=== PATIENT | female | born 1935 | race Caucasian/White ===

== ENCOUNTER → 2017-04-24 | Outpatient (CLI) | payer MEDICARE, OTHER ==
[~2017-04-24] MED LIST: IOPAMIDOL 76% 75 ML INFUS BTL 75 ML ONE; NS 0.9% 20 ML SDV 40 ML ONE
--- NOTE | 2017-04-24 16:43 | RADIOLOGY IMAGING REPORT ---
FACILITY: [facility] - [place] PATIENT NAME: Loulou Garcia : 1935 MR: [id number] V: [id number] EXAM DATE: ORDERING PHYSICIAN: MICHELLE LAND TECHNOLOGIST: Location: [facility] [place] Patient: Loulou Garcia : 1935 Visit/Account:[id number] Date of Sevice: 04/24/2017 CHEST W CONTRAST History: Dry cough, mediastinal mass TECHNIQUE: Contiguous axial images were performed through the chest to the level of the adrenal gla nds following the administration of IV contrast. Coronal and sagittal reformatting was also perform ed. Dose Lowering Technique One of the following dose optimization techniques was utilized in the performance of this exam: Autom ated exposure control; adjustment of the mA and/or kV according to the patient's size; or use of an i terative reconstruction technique. Specific details can be referenced in the facility's radiology C T exam operational policy. Contrast: 75 mL Isovue-370 COMPARISON STUDIES: Chest PA and lateral March 07, 2017. Lungs / Pleura: Coarse linear stranding is identified in the anterior right upper lobe inferior naren gula and both lower lobes likely represent scarring. Patchy airspace consolidation with air bronchog aurora in the left lower lobe may represent chronic atelectasis versus infiltrate. There is no evidenc e of pleural effusions. Mediastinum/nodes: negative. Heart and vessels: negative. Musculoskeletal / Body wall: There are moderate spondylotic changes of the thoracolumbar spine. Upper abdomen: There is a large laminated gallstone within the gallbladder. No evidence of biliary ductal dilatation. Incompletely imaged 1.5 cm hypodensity upper pole the left kidney likely a cyst. There is a large diaphragmatic hernia on the left containing most of the stomach IMPRESSION: There is a large diaphragmatic hernia on the left containing most of the stomach Cholelithiasis although no demonstration of biliary ductal dilatation Coarse linear stranding in the lungs likely representing scarring. Patchy airspace consolidation with air bronchograms in the left lower lobe may represent atelectasis versus infiltrate. Report Dictated By: Carey Pineda MD at 04/24/2017 4:32 PM Report E-Signed By: Carey Pineda MD at 04/24/2017 4:40 PM WSN:[email or web address]
== END ==
LOC: CT 01:38
PROVIDERS: ATTEND Nurse Practitioner Family
DX: K44.9 Diaphragmatic hernia without obstruction or gangrene (principal); R91.8 Other nonspecific abnormal finding of lung field; K80.80 Other cholelithiasis without obstruction
CPT/HCPCS: 71260; J7050; Q9967

== ENCOUNTER → 2017-05-05 | Outpatient (CLI) | payer MEDICARE, OTHER | LOC: RESP 04:05 | PROVIDERS: ATTEND Nurse Practitioner Family | DX: J44.9 Chronic obstructive pulmonary disease, unspecified (principal); K44.9 Diaphragmatic hernia without obstruction or gangrene | CPT/HCPCS: 94060; 94726; 94729 ==

== ENCOUNTER → 2018-05-03 | Outpatient (CLI) | payer MEDICARE, OTHER ==
[~2018-05-03] MED LIST changes: -IOPAMIDOL 76% 75 ML INFUS BTL 75 ML ONE; -NS 0.9% 20 ML SDV 40 ML ONE; +REGADENOSON 0.4 MG/5 ML SYR ONE
--- NOTE | 2018-05-03 17:12 | RT STRESS TEST REPORT ---
FACILITY: [facility] - [place] PATIENT NAME: DOUG MICHELLE : [id number] MR: [id number] V: [id number] EXAM DATE: ORDERING PHYSICIAN: MICHELLE LAND TECHNOLOGIST: Acquisition Time: 2018-05-03 14:53:17 Total Exercise Time: 00:01:00 Test Indications: Fatigue Medications: see nuclear med sheet Protocol: LEXISCAN Max HR: 075 BPM 53% of Pred: 140 BPM Max BP: 136/067 mmHG Max Work Load: 1.0 METS Non-diagnostic EKG portion of stress test. Await radiology evaluation of imaging portion. Confirmed by Sami Clements ([id number]) on 05/03/2018 5:12:48 PM Referred By: Overread By: Sami Beltran
--- NOTE | 2018-05-04 09:11 | RADIOLOGY IMAGING REPORT ---
FACILITY: [facility] - [place] PATIENT NAME: Loulou Garcia : 1935 MR: [id number] V: [id number] EXAM DATE: ORDERING PHYSICIAN: MICHELLE LAND TECHNOLOGIST: Location: [facility] - [place] Patient: Loulou Garcia : 1935 Visit/Account:[id number] Date of Sevice: 05/03/2018 EXAMINATION: Single isotope SPECT imaging with regadenoson infusion and gated SPECT imaging. DATE OF EXAMINATION: 05/03/2018. DATE OF INTERPRETATION: 05/04/2018. REQUESTING PHYSICIAN: MICHELLE LAND. INDICATION: The patient is a 82-year-old female evaluated for fatigue. PROCEDURE: After informed consent the patient received an intravenous injection of 12.6 mCi of Tc-99 m sestamibi followed at an appropriate time interval by rest imaging. The patient then subsequently received an intravenous infusion of 0.4 mg of regadenoson per protocol without complication. Resting heart rate was 54 bpm with a peak heart rate of 75 bpm. Blood pressure at rest was 136 / 67 and fol lowing infusion was 136 / 67. Baseline EKG demonstrates sinus rhythm. There were no EKG changes of ischemia following infusion. Symptoms were nonspecific. The patient then received an intravenous in jection of 28.7 mCi of Tc-99m sestamibi followed by stress imaging. RAW DATA: Examination of the summed raw data revealed a good quality study. MYOCARDIAL PERFUSION: The tomographic images demonstrate normal myocardial perfusion with no evidenc e of infarct or ischemia. There is a mild inconsistent anterior defect that is most likely from breas t attenuation. There is no TID. GATED IMAGES: The gated images demonstrate hyperdynamic ejection fraction >70% with normal wall bing on and thickening. IMPRESSION: 1. Nondiagnostic Lexiscan stress ECG 2. Normal myocardial perfusion scan. 3. Hyperdynamic LV systolic function; LVEF >70%. 4. Based on the results of this exam, the patient appears to be at low risk for future cardiovascular events. Report Dictated By: Lux Arnett at 05/04/2018 9:02 AM Report E-Signed By: Lux Arnett at 05/04/2018 9:06 AM WSN:[id number]
== END ==
LOC: NUC 00:49
PROVIDERS: ATTEND Nurse Practitioner Family
DX: R53.81 Other malaise (principal); K30 Functional dyspepsia; Z82.49 Family history of ischemic heart disease and other diseases of the circulatory system
CPT/HCPCS: 78452; 93017; A9500; J2785